=== PATIENT | male | born 1960 | race Hispanic/Latino ===

== ENCOUNTER 2019-11-30 10:13 | Outpatient (CLI) | payer OTHER ==
--- NOTE | 2019-11-30 10:36 | RAD ---
XR Chest Pa Lat STANDARD HISTORY: Shortness of breath and cough COMPARISON: None FINDINGS: The heart size is normal. The lungs are well expanded without focal areas of consolidation, pneumothorax or pleural effusions. IMPRESSION: No radiographic evidence of acute cardiopulmonary process.
== END 2019-11-30 10:14 | disposition home or self-care (01) ==
LOC: SCSRAD 10:13
PROVIDERS: ATTEND Family Medicine
DX: R06.02 Shortness of breath (principal)
CPT/HCPCS: 71046

== ENCOUNTER 2023-02-17 15:05 | Outpatient (CLI) | payer OTHER | END 2023-02-17 15:06 | disposition home or self-care (01) | LOC: SCSRAD 15:05 | PROVIDERS: ATTEND Family Medicine | DX: M54.50 Low back pain, unspecified (principal); M46.1 Sacroiliitis, not elsewhere classified; M47.816 Spondylosis without myelopathy or radiculopathy, lumbar region | CPT/HCPCS: 72100; 72202 ==